=== PATIENT | female | born 1985 | race Hispanic/Latino ===

== ENCOUNTER 2016-08-04 17:20 | Emergency (ER) | payer SELFPAY ==
[~2016-08-04] VITALS: Ht 157.5 cm; Wt 163.3 kg
[~2016-08-04 17:20] MED LIST: FLEXERIL OR; NO MEDS; ULTRAM50 MG OR
[2016-08-04] MEDS ORDERED: NEXIUM40 M1 PO (17:28)
[2016-08-04 18:07] LABS: HEMATOCRIT 42.4 % (37.0-47.0); HEMOGLOBIN 13.3 g/dl (12.0-16.0); IMMATURE GRANULOCYTES 0.5 % (0.0-1.0); MEAN CELL VOLUME 77.8 fL CALC (80.0-100.0); MEAN CORPUSCULAR HGB 24.4 pG CALC (26.0-32.0); MEAN CORPUSCULAR HGB CONC 31.4 g/L CALC (32.0-36.0); NEUT# 6.83 thou/uL (2.00-7.15); RED BLOOD COUNT 5.45 mill/uL (4.20-5.60); RED CELL DISTRI WIDTH 15.6 % (11.5-15.5)
[2016-08-04 18:10] LABS: URINE BLOOD DIPSTICK TRACE-LYSED (NEGATIVE); URINE CLARITY CLEAR; URINE COLOR YELLOW; URINE GLUCOSE - DIPSTICK NEGATIVE (NEGATIVE); URINE KETONE >=80 mg/dL (NEGATIVE); URINE LEUK ESTERASE NEGATIVE (NEGATIVE); URINE NITRITE - DIPSTICK NEGATIVE (Negative); URINE PROTEIN - DIPSTICK NEGATIVE (NEG-TRACE); URINE SPECIFIC GRAVITY 1.025; URINE UROBILINOGEN - DIPSTICK 0.2 E.U./dL (0.2)
[2016-08-04 18:12] LABS: URINE BILIRUBIN - DIPSTICK NEGATIVE (NEGATIVE)
[2016-08-04 18:29] LABS: ALBUMIN 4.4 g/dL (3.2-5.0); ALKALINE PHOSPHATASE 80 u/l (38-126); AMYLASE 31 u/l (30-110); ANION GAP 21 (6-22 (CALC)); BILIRUBIN, TOTAL 0.8 mg/dL (0.0-1.4); BUN 6 mg/dL (7-17); BUN/CREATININE RATIO 11 (12-20 (CALC)); CALCIUM 9.6 mg/dL (8.4-10.2); CARBON DIOXIDE 25 mmol/l (22-30); CHLORIDE 100 mmol/l (95-108); CREATININE 0.6 mg/dL (0.5-1.0); GFR > 60 ML/MIN (>=60 (CALC)); GFR FOR AFR.AMER. > 60 ML/MIN (>=60 (CALC)); GLUCOSE 83 mg/dL (65-105); LIPASE 38 u/l (23-300); POTASSIUM 3.2 mmol/l (3.5-5.1); SGOT/AST 32 u/l (14-36); SGPT/ALT 59 u/l (9-52); SODIUM 142 mmol/l (137-146); TOTAL PROTEIN 8.6 g/dL (6.3-8.2)
[2016-08-04 18:39] LABS: MYOGLOBIN 12 ng/mL (0 - 62)
[2016-08-04 20:35] VITALS: BP 126/72
== END 2016-08-04 20:35 | disposition left against medical advice (07) | DRG 392 ==
LOC: ED 17:20
PROVIDERS: Emergency Medicine
DX: R10.9 Unspecified abdominal pain (principal); Z90.3 Acquired absence of stomach [part of]; R11.10 Vomiting, unspecified; E86.0 Dehydration; G89.18 Other acute postprocedural pain

== ENCOUNTER 2018-08-14 18:50 | Emergency (ER) | payer SELFPAY ==
[~2018-08-14] VITALS: Ht 157.5 cm; Wt 118.0 kg
[~2018-08-14 18:50] MED LIST changes: +NEXIUM40 M1 PO
[2018-08-14 19:30] VITALS: BP 136/89
[2018-08-14 19:51] LABS: URINE BILIRUBIN - DIPSTICK NEGATIVE (NEGATIVE); URINE BLOOD DIPSTICK MODERATE (NEGATIVE); URINE COLOR YELLOW; URINE GLUCOSE - DIPSTICK NEGATIVE (NEGATIVE); URINE KETONE NEGATIVE (NEGATIVE); URINE LEUK ESTERASE NEGATIVE (NEGATIVE); URINE NITRITE - DIPSTICK NEGATIVE (Negative); URINE PROTEIN - DIPSTICK NEGATIVE (NEG-TRACE)
[2018-08-14 20:00] LABS: URINE SQUAMOUS EPITHELIAL CELL FEW EPI/hpf (0-FEW); URINE WBC 0-2 WBC/hpf (0-5)
[2018-08-14] MEDS ORDERED: DIFLUCAN100 M1 PO (20:19)
== END 2018-08-14 20:29 | disposition home or self-care (01) | DRG 759 ==
LOC: ED 18:50
DX: B37.3 Candidiasis of vulva and vagina (principal)

== ENCOUNTER 2018-08-23 10:15 | Emergency (ER) | payer SELFPAY ==
[~2018-08-23] VITALS: Ht 157.5 cm; Wt 127.3 kg
[~2018-08-23 10:15] MED LIST changes: +DIFLUCAN100 M1 PO
[2018-08-23] MEDS ORDERED: AMOXICILLIN500 MG PO (10:37)
[2018-08-23] MEDS ORDERED: TORADOL PO (10:37)
[2018-08-23] MEDS ORDERED: DELTASONE20 MG PO (10:37)
[2018-08-23 10:44] VITALS: BP 125/72
== END 2018-08-23 10:49 | disposition home or self-care (01) | DRG 153 ==
LOC: ED 10:15
DX: J02.9 Acute pharyngitis, unspecified (principal)

== ENCOUNTER 2019-03-07 09:28 | Emergency (ER) | payer SELFPAY ==
[~2019-03-07] VITALS: Ht 157.5 cm; Wt 136.0 kg
[~2019-03-07 09:28] MED LIST changes: +AMOXICILLIN500 MG PO; +DELTASONE20 MG PO; +TORADOL PO
[2019-03-07 10:34] LABS: URINE BILIRUBIN - DIPSTICK NEGATIVE (NEGATIVE); URINE BLOOD DIPSTICK NEGATIVE (NEGATIVE); URINE COLOR YELLOW; URINE GLUCOSE - DIPSTICK NEGATIVE (NEGATIVE); URINE KETONE NEGATIVE (NEGATIVE); URINE LEUK ESTERASE NEGATIVE (NEGATIVE); URINE NITRITE - DIPSTICK NEGATIVE (Negative); URINE PH 7.5 (4.5-8.0); URINE PROTEIN - DIPSTICK NEGATIVE (NEG-TRACE); URINE SPECIFIC GRAVITY 1.015
[2019-03-07] MEDS ORDERED: TRAMADOL HYDROC50 MG PO (12:09)
[2019-03-07] MEDS ORDERED: CYCLOBENZAPR5 MG PO (12:11)
[2019-03-07 13:45] VITALS: BP 125/91
== END 2019-03-07 13:46 | disposition home or self-care (01) | DRG 552 ==
LOC: ED 09:28
PROVIDERS: Family Medicine
DX: M54.5 Low back pain (principal); W10.9XXA Fall (on) (from) unspecified stairs and steps, initial encounter

== ENCOUNTER 2019-05-23 | Emergency (ER) | payer SELFPAY ==
[~2019-05-23] MED LIST changes: +CYCLOBENZAPR5 MG PO; +TRAMADOL HYDROC50 MG PO
[2019-05-23 12:39] LABS: IMMATURE GRANULOCYTES 0.7 % (0.0-5.0); MEAN CORPUSCULAR HGB 20.2 pG CALC (26.0-32.0); MEAN CORPUSCULAR HGB CONC 29.7 g/L CALC (32.0-36.0); NEUT# 11.79 thou/uL (2.00-7.15); RED BLOOD COUNT 5.06 mill/uL (4.20-5.60); RED CELL DISTRI WIDTH 17.9 % (11.5-15.5)
[2019-05-23 12:40] LABS: HEMATOCRIT 34.3 % (37.0-47.0); HEMOGLOBIN 10.2 g/dl (12.0-16.0); MEAN CELL VOLUME 67.8 fL CALC (80.0-100.0)
[2019-05-23 12:58] LABS: ALBUMIN 3.9 g/dL (3.2-5.0); ALKALINE PHOSPHATASE 102 u/l (38-126); AMYLASE 46 u/l (30-110); BILIRUBIN, TOTAL 0.5 mg/dL (0.0-1.4); BUN 19 mg/dL (7-17); BUN/CREATININE RATIO 35 (12-20 (CALC)); CARBON DIOXIDE 27 mmol/l (22-30); CHLORIDE 106 mmol/l (95-108); CREATININE 0.5 mg/dL (0.5-1.0); GFR > 60 ML/MIN (>=60 (CALC)); GFR FOR AFR.AMER. > 60 ML/MIN (>=60 (CALC)); LIPASE 58 u/l (23-300); SGOT/AST 47 u/l (14-36); SODIUM 138 mmol/l (137-146); TOTAL PROTEIN 7.4 g/dL (6.3-8.2)
[2019-05-23 13:02] LABS: ANION GAP 9 (6-22 (CALC)); POTASSIUM 4.2 mmol/l (3.5-5.1)
[2019-05-23 13:09] LABS: MYOGLOBIN 19 ng/mL (0 - 62)
[2019-05-23] MEDS ORDERED: PREVACID30 M3 PO (18:39)
[2019-05-23] MEDS ORDERED: AMOXICILLIN500 MG PO (18:40)
== END 2019-05-23 17:10 | disposition home or self-care (01) | DRG 392 ==
PROVIDERS: Emergency Medicine
DX: K29.70 Gastritis, unspecified, without bleeding (principal); J02.0 Streptococcal pharyngitis
CPT/HCPCS: Q9967

== ENCOUNTER 2019-06-24 10:37 | Emergency (ER) | payer SELFPAY ==
[~2019-06-24 10:37] MED LIST changes: +PREVACID30 M3 PO
[2019-06-24 11:16] VITALS: BP 108/76
== END 2019-06-24 11:22 | disposition home or self-care (01) | DRG 204 ==
LOC: ED 10:37
DX: R05 Cough (principal); R09.89 Other specified symptoms and signs involving the circulatory and respiratory systems

== ENCOUNTER 2019-08-25 10:46 | Inpatient (IN) | payer SELFPAY ==
[~2019-08-25] VITALS: Ht 157.5 cm; Wt 137.0 kg
--- NOTE | 2019-08-25 10:46 | NUR ---
PATIENT TO ROOM VIA EMS AND PHYSICIAN AT BEDSIDE FOR EVAL
[2019-08-25 11:13] LABS: HEMATOCRIT 34.5 % (37.0-47.0); HEMOGLOBIN 10.4 g/dl (12.0-16.0); IMMATURE GRANULOCYTES 0.5 % (0.0-5.0); MEAN CELL VOLUME 65.1 fL CALC (80.0-100.0); MEAN CORPUSCULAR HGB 19.6 pG CALC (26.0-32.0); MEAN CORPUSCULAR HGB CONC 30.1 g/dL CAL (32.0-36.0); NEUT# 3.77 thou/uL (2.00-7.15); RED BLOOD COUNT 5.3 mill/uL (4.20-5.60); RED CELL DISTRI WIDTH 19.7 % (11.5-15.5)
[2019-08-25 11:26] LABS: HCG SERUM/URINE (NEG/POS) NEGATIVE (NEGATIVE)
--- NOTE | 2019-08-25 11:41 | NUR ---
PT RESTING QUIETLY ON STRETCHER, NO VOMITING SINCE ARRIVAL. WATCHING TV AND ON PHONE
[2019-08-25 11:50] LABS: URINE BILIRUBIN - DIPSTICK NEGATIVE (NEGATIVE); URINE BLOOD DIPSTICK TRACE-INTACT (NEGATIVE); URINE COLOR YELLOW; URINE GLUCOSE - DIPSTICK NEGATIVE (NEGATIVE); URINE KETONE 15 mg/dL (NEGATIVE); URINE LEUK ESTERASE NEGATIVE (NEGATIVE); URINE NITRITE - DIPSTICK NEGATIVE (Negative); URINE PROTEIN - DIPSTICK TRACE mg/dL (NEG-TRACE); URINE UROBILINOGEN - DIPSTICK 0.2 E.U./dL (0.2)
[2019-08-25 12:51] LABS: ALBUMIN 3.4 g/dL (3.2-5.0); ALKALINE PHOSPHATASE 63 u/l (38-126); ANION GAP 11 (6-22 (CALC)); BILIRUBIN, TOTAL 0.3 mg/dL (0.0-1.4); BUN 11 mg/dL (7-17); BUN/CREATININE RATIO 21 (12-20 (CALC)); C-REACTIVE PROTEIN 5.7 mg/dL (0-0.9); CARBON DIOXIDE 25 mmol/l (22-30); CHLORIDE 105 mmol/l (95-108); CREATININE 0.5 mg/dL (0.5-1.0); GFR > 60 ML/MIN (>=60 (CALC)); GFR FOR AFR.AMER. > 60 ML/MIN (>=60 (CALC)); LIPASE 35 u/l (23-300); MAGNESIUM 1.7 mg/dL (1.6-2.3); POTASSIUM 3.5 mmol/l (3.5-5.1); SGOT/AST 24 u/l (14-36); SODIUM 137 mmol/l (137-146); TOTAL PROTEIN 6.7 g/dL (6.3-8.2)
[2019-08-25 12:59] LABS: AMYLASE < 30 u/l (30-110)
[2019-08-25 13:03] LABS: ACT PARTIAL THROMBO TIME 29.9 SECONDS (20.0-32.5); PROTHROMBIN TIME 10.5 SECONDS (9.0-12.5)
[2019-08-25 13:05] LABS: D-DIMER > 35.20 mg/L (0.19-0.60)
--- NOTE | 2019-08-25 13:41 | NUR ---
PT RESTING QUIETLY , VSS , CALL LIGHT WITHIN REACH
--- NOTE | 2019-08-25 14:17 | NUR ---
SBAR PRINTED TO FLOOR
--- NOTE | 2019-08-25 15:22 | NUR ---
ADVISED PT OF WAIT TIME FOR ADMISSION, REMAINS ALERT/ORIENTED X3, IV INFUSION FINISHED, CALL LIGHT AT BEDSIDE.
--- NOTE | 2019-08-25 15:58 | NUR ---
REPORT GIVEN TO MED SURG FOR CONTINUATION OF CARE
--- NOTE | 2019-08-25 16:10 | NUR ---
PT TAKEN TO FLOOR PER W/C AND TELEMTRY.
--- NOTE | 2019-08-25 16:14 | NUR ---
PT ARRIVED TO [facility] VIA WHEELCHAIR ACCOMPANIED BY ER NURSE, PT AMBULATED WITH STEADY GAIT TO BED FROM WHEELCHAIR, PT ALERT AND ORIENTED X3, ORIENTED PT TO ROOM AND CALL LIGHT, DISCUSSED POC, SKIN INTACT. ADMISSION ASSESSMENT COMPLETED. EMS SITE FLUSHED WELL, TELE IN PLACE. CALL LIGHT IN REACH,CONTINUE TO MONITOR.
[2019-08-25 19:06] VITALS: BP 116/60
--- NOTE | 2019-08-25 19:58 | NUR ---
PT MEDICATED FOR HEADACHE W/TYLENOL AND ASSESSMENT COMPLETED AT THIS TIME. NO S/O DISTRESS NOTED AT THIS TIME. PT DENIES N/V AT THIS TIME, DENIES DIAHRREA, REPORTS VOMITING 3X SINCE YESTERDAY PRIOR TO ARRIVING TO HOSPITAL. PT DENIES ANY OTHER NEEDS. AT THIS TIME.
--- NOTE | 2019-08-25 23:02 | NUR ---
PT MEDICATED ORDER PROVIDE W/IVF. V/S ASSESSED, PT DENIES ANY OTHER NEEDS AT THIS TIME. CALL LIGHT IS W/IN REACH AND PT REORIENTED TO ITS USE, SAFETY MEASURES, AMBULATING TO RESTROOM, I OFFERED BSC FOR CONVENIENCE THROUGHOUT THE NIGHT, PT DENIED NEED. LIGHTS AND TV ARE OFF PER REQUEST, PT ENCOURAGED TO CALL NEEDS ARISE AND INSTRUCTED FOR USE OF PHONE FOR COMMUNICATION NEEDS.
[2019-08-25 23:34] VITALS: BP 92/63
[2019-08-26] VITALS (7 sets, daily range): BP systolic 100–132; BP diastolic 60–74
--- NOTE | 2019-08-26 05:05 | NUR ---
PT SLEEPING AT THIS TIME. AWOKE TO MY VOICE. DENIES ANY NEEDS. AIDE IN TO OBTAIN V/S
--- NOTE | 2019-08-26 08:12 | NUR ---
PT note 08/26/19 Patient screened for possible PT intervention. She may benefit from prone positioning and DBE - will await medical workup and OK from medical team before eval
--- NOTE | 2019-08-26 10:16 | NUR ---
SPOKE WITH PT ON THE PHONE TO CONDUCT [facility], PT TAKES NO MAINTENANCE MEDS, NO OTC SUPPLEMENTS, PREFERRED PHARMACY IS [facility]. NO ALLERGIES, BUT INSTRUCTED TO AVOID USE OF NSAIDS BY SURGEON WHO DID GASTRIC SLEEVE.
--- NOTE | 2019-08-26 17:50 | NUR ---
RESISDENT IS ALERT AND ORIENTED AND ABLE TO VERBALIZE NEEDS. MEDICATIONS GIVEN AND TOLERATED WELL. SKIN WARM TO TOUCH. MEDICATIONS GIVEN AND TOLERATED WELL. RESIDENT CONTINUES ON ABGT THERAPY WITH NO ADVERSE SIDE EFFECTS. MD IN TO SEE RESIDENT AND NEW ORDERS NOTED. RESIDENT IS ABLE TO AMBULATE TO TOILET WITH NO ASSIST NEEDEDC AND CONTINENT OF B/B. STATED THAT SHE HAD 2 BOUTS OF LOOSE STOOLS EARLIER IN THE DAY. COMPLAINTS OF SOB EARLIER IN SHIFT WITH O2 SAT WNL. IN BED WITH HOB ELEVATED. WILL CONTINUE TO OBSERVE
--- NOTE | 2019-08-26 20:08 | NUR ---
PT IN BED WITH LIGHTS OUT AND TV ON. PT DENIES ANY NEEDS AT THIS TIME. CALL LIGHT W/IN REACH AND PT ENCOURAGED TO CALL NEEDS ARISE.
--- NOTE | 2019-08-26 22:38 | NUR ---
PT MEDICATED FOR HEADACHE REPORTED 10/10 ON PAIN SCALE. PT DENIES N/V. C/O MILD SOB, BREATHING IS NOT LABORED AT THIS TIME. REPORTS DRY HACKING NON-PRODUCTIVE COUGH. PT REPORTS URINATING SEVERAL TIMES AND FLUSHING/NOT ABLE TO VISUALIZE. PT REPORTS BEING COMFORTABLE AND DENIES NEEDING ANY OTHER ASSISTANCE AT THIS TIME.
[2019-08-27] VITALS (13 sets, daily range): BP systolic 92–138; BP diastolic 51–87
--- NOTE | 2019-08-27 02:00 | NUR ---
PT SLEEPING, AWOKE TO MY VOICE DENIES ANY NEEDS, CALL LIGHT W/IN REACH. PT ENCOURAGED TO CALL NEEDS ARISE.
--- NOTE | 2019-08-27 05:00 | NUR ---
ATTEMPTS TO REPLACE EMS IV SITE AND OBTAIN BLOOD DRAW FOR LABS. UNABLE TO OBTAIN. WILL NOTIFY DAYSHIFT NURSE AND NIGHT CLUB MANAGER. PT TOLERATED WELL, DENIES ANY OTHER NEEDS AT THIS TIME AND HAS BEEN ENCOURAGED TO CALL NEEDS ARISE.
[2019-08-27 06:44] LABS: HEMOGLOBIN 8.8 g/dl (12.0-16.0); IMMATURE GRANULOCYTES 0.8 % (0.0-5.0); MEAN CORPUSCULAR HGB 30.4 pG CALC (26.0-32.0); NEUT# 11.98 thou/uL (2.00-7.15); RED BLOOD COUNT 2.89 mill/uL (4.20-5.60)
[2019-08-27 06:50] LABS: HEMATOCRIT 26.7 % (37.0-47.0); MEAN CELL VOLUME 92.4 fL CALC (80.0-100.0)
[2019-08-27 06:56] LABS: BUN 15 mg/dL (7-17); BUN/CREATININE RATIO 16 (12-20 (CALC)); CARBON DIOXIDE 21 mmol/l (22-30); CHLORIDE 99 mmol/l (95-108); GFR > 60 ML/MIN (>=60 (CALC)); GFR FOR AFR.AMER. > 60 ML/MIN (>=60 (CALC)); POTASSIUM 3.8 mmol/l (3.5-5.1)
[2019-08-27 06:57] LABS: ANION GAP 12 (6-22 (CALC)); SODIUM 128 mmol/l (137-146)
--- NOTE | 2019-08-27 07:15 | NUR ---
REPORT RECEIVED FROM MATT GARCIA. PT UP TO SHOWER WITH ASSIST. INCREASED SOB; EXTENSION TUBING PROIVDED 2L VIA NC.
--- NOTE | 2019-08-27 08:33 | NUR ---
NOTIFIED OF INCREASED SOB; SPO2 93-96% ON 2L VIA NC. NEW ORDER TO TRANSFER PT TO ICU FOR CLOSER MONITORING. BED ASSIGNMENT RECEIVED FROM MATT PEREZ; ICU 8. PT UPDATED. ASSESSMENT COMPLETED AT THIS TIME; PT SITTING UP ON EDGE OF BED. ATE MINIMAL BREAKFAST DUE TO SOB. VSS. PT ON AIRBORNE/CONTACT ISOLATION FOR POSITIVE COVID RESULTS. -
--- NOTE | 2019-08-27 10:00 | NUR ---
RECIEVED REPORT FROM MATT SOTO.
--- NOTE | 2019-08-27 10:02 | NUR ---
PT EDUCATED ON LOVENOX AND ADMINSITERED SQ. ASSISTED TO WHEELCHAIR FOR TRANSPORT TO ICU. REPORT GIVEN TO MATT PEREZ.
--- NOTE | 2019-08-27 10:23 | NUR ---
[facility] AT [facility]. PT A&0X4, ABLE TO MAKE NEEDS KNOWN. AFEBRILE. SR ON TELEMETRY, HR, 68. PT NOTED WITH LABORED BREATHING, PT STATES SHE IS BREATHING BETTER NOW, PT ENCOURAGED TO PRONE POSITION, PT DECLINED AT THIS TIME. PT ORIENTED TO UNIT, ROOM AND CALL JUNIOR.PO FLUIDS GIVEN. CALL LIGHT IN REACH. WILL MONITOR.
--- NOTE | 2019-08-27 12:08 | NUR ---
PT ASSISTED TO BSC, PT SOB WITH EXERTION, CONTINUES WITH O2@2LPM VIA NC, SA02@95%. PT SLOW STEADY GAIT. PT THEN ASSISTED BACK TO BED, PT SITTING ON SIDE OF BED, LUNCH TRAY SET UP. CALL LIGHT IN REACH. WILL MONITOR.
--- NOTE | 2019-08-27 13:03 | NUR ---
DR. WEBSTER AT BEDSIDE FOR ASSESSMENT AND TO DISCUSS PLAN OF CARE. NEW ORDERS RECIEVED.
--- NOTE | 2019-08-27 14:00 | NUR ---
LABS DRAWN AT BEDSIDE, ABLE TO GET 2 TUBES, UNABLE TO OBTAIN BLUE TOP. ATTEMPTS X3. DR. WEBSTER NOTIFIED.
[2019-08-27 15:55] LABS: ALBUMIN 3.2 g/dL (3.2-5.0); ALKALINE PHOSPHATASE 60 u/l (38-126); ANION GAP 11 (6-22 (CALC)); BILIRUBIN, TOTAL 0.3 mg/dL (0.0-1.4); BUN 6 mg/dL (7-17); BUN/CREATININE RATIO 15 (12-20 (CALC)); C-REACTIVE PROTEIN 3.1 mg/dL (0-0.9); CARBON DIOXIDE 22 mmol/l (22-30); CHLORIDE 107 mmol/l (95-108); CREATININE 0.4 mg/dL (0.5-1.0); GFR > 60 ML/MIN (>=60 (CALC)); GFR FOR AFR.AMER. > 60 ML/MIN (>=60 (CALC)); POTASSIUM 3.7 mmol/l (3.5-5.1); SGOT/AST 25 u/l (14-36); TOTAL PROTEIN 6.3 g/dL (6.3-8.2)
--- NOTE | 2019-08-27 16:00 | NUR ---
NEW ORDERS RECIEVED, PT RESTING IN PRONE POSITION, RESPIRATIONS EVEN/UNLABORED/SHALLOW. SA02@96% ON 02@2LPM VIA NC. CALL LIGHT IN REACH. WILL MONITOR.
[2019-08-27 16:21] LABS: SODIUM 136 mmol/l (137-146)
--- NOTE | 2019-08-27 18:05 | NUR ---
PT RESTING IN BED, DIETARY ON UNIT, DINNER TRAY SET UP. PT OFFERS NO COMPLAINTS AT THIS TIME. CALL LIGHT IN REACH. WILL MONITOR.
--- NOTE | 2019-08-27 20:00 | NUR ---
PATIENT RESTING IN BED WATCHING TV ON ROUNDS. RESP NON-LABORED AT REST. PATIENT STATES INCREASED SOB WITH MINIMAL ACTIVITY. O2 ON AT 2 L NC. O2 SAT BREATH SOUNDS DIMINSHED THROUGHOUT LUNG SKELTON. ABD SOFT WITH ACTIVE BOWEL SOUNDS. PATIENT DENIES HAVING LOOSE STOOLS THIS AFTERNOON. REMOVED DINNER TRAY PATIENT STATES DID NOT FEEL UP TO EATING. INFORMED PATIENT THERE ARE SNACKS AND SANDWICHES IF SHE IS HUNGRY LATER ON. SALINE LOCK IN LAC, SITE BENIGN. DRY CHAIN OPERATOR SHOWS SR. DISCUSSED PLAN OF CARE. DENIES NEEDS AT THIS TIME.
--- NOTE | 2019-08-27 21:50 | NUR ---
TYLENOL 650 MG PO FOR C/O HEADACHE. PATIENT GIVEN APPLE JUICE AND GAURANG CRACKERS FOR A SNACK.
--- NOTE | 2019-08-27 22:30 | NUR ---
PATIENT LYING PRONE, O2 SAT 98%, RR 20.
--- NOTE | 2019-08-27 23:15 | NUR ---
DR WEBSTER PHONED IN FOR CONDITION UPDATE ON PATIENT.
[2019-08-28] VITALS (14 sets, daily range): BP systolic 94–138; BP diastolic 60–90
--- NOTE | 2019-08-28 00:10 | NUR ---
PATIENT CONTINUES RESTING PRONE. VSS. O2 SAT 99% SB-SR ON MONITOR, HR 50'S-60'S.
--- NOTE | 2019-08-28 01:00 | NUR ---
NO CHANGES TO REPORT. RESTING QUIETLY IN PRONE POSITION.
--- NOTE | 2019-08-28 03:12 | NUR ---
PATIENT RESTING WITH EYES CLOSED IN SEMI-FOWLERS POSITION. O2 SAT 94%
--- NOTE | 2019-08-28 04:00 | NUR ---
VSS. MAINTAINING O2 SAT GREATER THAN 94% SB-SR ON MONITOR.
--- NOTE | 2019-08-28 04:55 | NUR ---
BLOOD DRAWN FOR AM LABS VIA PERIPHRAL STICK IN RFA X1 ATTEMPT.
[2019-08-28 05:12] LABS: HEMOGLOBIN 9.1 g/dl (12.0-16.0); IMMATURE GRANULOCYTES 0.2 % (0.0-5.0); MEAN CORPUSCULAR HGB 19.7 pG CALC (26.0-32.0); MEAN CORPUSCULAR HGB CONC 29.4 g/dL CAL (32.0-36.0); NEUT# 2.43 thou/uL (2.00-7.15); RED BLOOD COUNT 4.62 mill/uL (4.20-5.60)
[2019-08-28 05:25] LABS: MEAN CELL VOLUME 67.1 fL CALC (80.0-100.0)
[2019-08-28 05:35] LABS: ALBUMIN 3.1 g/dL (3.2-5.0); ALKALINE PHOSPHATASE 58 u/l (38-126); ANION GAP 11 (6-22 (CALC)); BILIRUBIN, TOTAL 0.3 mg/dL (0.0-1.4); BUN 6 mg/dL (7-17); BUN/CREATININE RATIO 16 (12-20 (CALC)); CARBON DIOXIDE 24 mmol/l (22-30); CHLORIDE 107 mmol/l (95-108); CREATININE 0.4 mg/dL (0.5-1.0); GFR > 60 ML/MIN (>=60 (CALC)); GFR FOR AFR.AMER. > 60 ML/MIN (>=60 (CALC)); POTASSIUM 3.4 mmol/l (3.5-5.1); SGOT/AST 22 u/l (14-36); SODIUM 138 mmol/l (137-146); TOTAL PROTEIN 6.3 g/dL (6.3-8.2)
--- NOTE | 2019-08-28 06:31 | NUR ---
PATIENT HAS MAINTAINED O2 SATS DURING THE NIGHT OF GREATER THAN 94%. AFEBRILE. SR ON MONITOR.
--- NOTE | 2019-08-28 06:45 | NUR ---
RECIEVED REPORT FROM MATT LEBLANC. ASSUMED PT CARE.
--- NOTE | 2019-08-28 07:30 | NUR ---
AT [facility] FOR ASSESSMENT AND TO DISCUSS PLAN OF CARE. NEW ORDERS RECIEVED.
--- NOTE | 2019-08-28 08:00 | NUR ---
PT RESTING IN BED, A&OX4, ABLE TO MAKE NEEDS KNOWN. SR ON TELEMETRY, HR 62. PT DENIES CP, SOB OR DISTRESS AT THIS TIME. RESPIRATION, EVEN/UNLABORED, LS DIMINISHED THROUGHOUT, SA02@96% ON 2LPM/NC. ADBOMEN SOFT DISTENDED, NON TENDER. BSX4 ACTIVE, LBM 5-26-20. 20GLAC/SL FLUSHES WITHOUT DIFFICULTY, NO S/S OF INFILTRATION NOTED AT SITE. iD CONSULT ORDERED, PENDING. PT REPOSITIONING SELF FROM SUPINE, SEMI-FOWLERS AND PRONE NEEDED. CALL LIGHT IN REACH. WILL MONITOR.
--- NOTE | 2019-08-28 09:30 | NUR ---
PT RESTING IN BED IN PRONE POSITION. RESPIRATIONS EVEN/UNLABORED, SA02@99% 2LPM/NC. CALL LIGHT IN REACH. WILL MONITOR.
--- NOTE | 2019-08-28 10:49 | NUR ---
DR. AWAN AT VIRTUAL BEDSIDE FOR ID CONSULTATION, SEE CONSULTATION NOTES.
--- NOTE | 2019-08-28 12:39 | NUR ---
PT RESTING IN SEMI FOWLERS WITH EYES CLOSED. PT REFUSED LUNCH TRAY, REQUESTED IT BE HELD FOR LATER. MEAL PLACED IN NUTRITION ROOM. WILL CONTINUE TO MONITOR.CALL LIGHT IN REACH. NO DISTRESS NOTED.
--- NOTE | 2019-08-28 14:00 | NUR ---
UPON FLUSHING 20GLAC, PT STATED DISCOMFORT, SIGHT LEAKING. SEVERAL ATTEMPTS TO START NEW IV UNSUCCESSFUL. NOTIFIED DR. WEBSTER TO UPDATE.
--- NOTE | 2019-08-28 14:28 | NUR ---
CARROLL WITH PT AT BEDSIDE FOR CHEST PT. PT TOLERATED WELL. PT REMAINS IN PRONE POSITION. CALL LIGHT IN REACH. WILL MONITOR.
--- NOTE | 2019-08-28 16:00 | NUR ---
IV site discontinued, cath intact. No edema , no redness, voices no discomfort.
--- NOTE | 2019-08-28 17:58 | NUR ---
Peripheral IV started. IV access obtained with #20 [employer] at [facility] with 1 IV stick attempts. Flushes easily with good blood return.
--- NOTE | 2019-08-28 19:00 | NUR ---
sitting on side of bed. denies c/o. no resp distress. o2 cont. cannoneer shows sinus rhythm hr 100. #20 rac saline lock. po fluids taken fair. voids per bsc. fall & airborne/contact precautions cont.
--- NOTE | 2019-08-28 22:00 | NUR ---
eyes closed. no distress. core drilling supervisor shows sinus rhythm hr 62.
[2019-08-29] VITALS (8 sets, daily range): BP systolic 97–141; BP diastolic 65–95
--- NOTE | 2019-08-29 00:01 | NUR ---
eyes closed. no distress. o2 cont.
--- NOTE | 2019-08-29 02:00 | NUR ---
resting quietly in supine position. hob up. o2 cont. no distress.
--- NOTE | 2019-08-29 04:45 | NUR ---
blood drawn & sent to lab.
[2019-08-29 05:41] LABS: HEMATOCRIT 27.7 % (37.0-47.0); HEMOGLOBIN 8.4 g/dl (12.0-16.0); IMMATURE GRANULOCYTES 0.5 % (0.0-5.0); MEAN CELL VOLUME 68.4 fL CALC (80.0-100.0); MEAN CORPUSCULAR HGB 20.7 pG CALC (26.0-32.0); MEAN CORPUSCULAR HGB CONC 30.3 g/dL CAL (32.0-36.0); NEUT# 1.95 thou/uL (2.00-7.15); RED BLOOD COUNT 4.05 mill/uL (4.20-5.60); RED CELL DISTRI WIDTH 19.9 % (11.5-15.5)
[2019-08-29 06:00] LABS: ALBUMIN 2.7 g/dL (3.2-5.0); ALKALINE PHOSPHATASE 49 u/l (38-126); ANION GAP 9 (6-22 (CALC)); BILIRUBIN, TOTAL 0.3 mg/dL (0.0-1.4); BUN 5 mg/dL (7-17); BUN/CREATININE RATIO 12 (12-20 (CALC)); C-REACTIVE PROTEIN 2.5 mg/dL (0-0.9); CARBON DIOXIDE 24 mmol/l (22-30); CHLORIDE 109 mmol/l (95-108); CREATININE 0.4 mg/dL (0.5-1.0); GFR > 60 ML/MIN (>=60 (CALC)); GFR FOR AFR.AMER. > 60 ML/MIN (>=60 (CALC)); POTASSIUM 3.2 mmol/l (3.5-5.1); SGOT/AST 24 u/l (14-36); SODIUM 139 mmol/l (137-146); TOTAL PROTEIN 5.5 g/dL (6.3-8.2)
--- NOTE | 2019-08-29 07:20 | NUR ---
PT RESTING IN BED WITH EYES CLOSED. AROUSES TO VERBAL STIMULI. PT IS ALERT AND ORIENTED X3. SHIFT ASSESSMENT COMPLETED AT THIS TIME. IV PATENT X1. CALL LIGHT IN REACH. WILL CONTINUE TO MONITOR.
--- NOTE | 2019-08-29 09:20 | NUR ---
DR WEBSTER AT BEDSIDE AT THIS TIME.
--- NOTE | 2019-08-29 09:52 | NUR ---
PT CURRENTLY INPT IN ICU DM , SPOKE SON KINGRN, STATES PT IS AWARE OF POSITIVE COVID-19 RESULTS
--- NOTE | 2019-08-29 10:00 | NUR ---
PT RESTING IN BED AWAKE AND WATCHING TV. RESP ARE EVEN AND UNLABORED. NO DISTRESS NOTED. CALL LIGHT IN REACH. WILL CONTINUE TO MONITOR.
--- NOTE | 2019-08-29 11:40 | NUR ---
PT SET UP FOR NOON MEAL
--- NOTE | 2019-08-29 13:05 | NUR ---
PT RESTING IN BED WITH EYES CLOSED. AT THIS TIME. RESP ARE EVEN AND UNLABORED. NO DISTRESS NOTED. CALL LIGHT IN REACH. WILL CONTINUE TO MONIOTR.
--- NOTE | 2019-08-29 13:13 | NUR ---
REPORT CALLED TO CHARLES GUTIERREZ ON MED SURG.
--- NOTE | 2019-08-29 13:35 | NUR ---
PT TRANSPORTED TO [facility] VIA WHEELCHAIR. PT ASSISTED TO SHOWER CHARLES GUTIERREZ MADE AWARE.
--- NOTE | 2019-08-29 13:40 | NUR ---
PT ARRIVED TO UNIT VIA WHEELCHAIR CURRENTLY SHOWERING INDEPENDENLTY. PLACED IN AIRBORNE/CONTACT ISOLATION FOR POSTIVE COVID SWAB. PT ORIENTED TO ROOM AND CALL LIGHT SYSTEM.
--- NOTE | 2019-08-29 15:53 | NUR ---
ABT X 2 INFUSED WITHOUT DIFFICULTY AND PT NOW SALINE LOCKED. SPO2 ON ROOM AIR 88%; OXYGEN REAPPLIED AT 1.5L AND SPO2 INCREASED TO 95%. PT REQUESTING SNACKS; CRACKERS AND NUTRIGRAIN BAR PROIVDED. PT RESTING IN BED SEMI FOWLERS.
--- NOTE | 2019-08-29 16:14 | NUR ---
PT note I checked in with the patient to ensure she was moving well. Her program includes her being on her feet 6x daily , deep breathing and breath holds for 6 seconds and prone positioning. She appears indepnedent and continues to improve
--- NOTE | 2019-08-29 20:36 | NUR ---
PT MEDICATED W/TYLENOL FOR HEADACHE 7/10 ON PAIN SCALE AND ASSESSMENT COMPLETED AT THIS TIME. LUNG SOUNDS DIMINISHED THROUGHOUT, PT REPORTS FEELING BETTER THAN THE DAY BEFORE AND FEELS SHE IS IMPROVING. PT ALSO REPORTS 1X SMALL WATERY STOOL EARLIER THIS DAY, DENIES N/V. INSTRUCTED PT TO CALL USING CALL SYSTEM IF ANY NEEDS ARISE. SHE DENIES ANY FURTHER NEEDS AT THIS TIME. CALL LIGHT IS IN HAND.
[2019-08-30] VITALS: BP 105/72
--- NOTE | 2019-08-30 00:20 | NUR ---
PT SLEEPING, V/S ASSESSED, AIDE IN W/PT
--- NOTE | 2019-08-30 03:22 | NUR ---
PT SLEEPING, NO S/O DISTRESS NOTED.
[2019-08-30 04:10] VITALS: BP 127/84
[2019-08-30 06:33] LABS: HEMATOCRIT 31.3 % (37.0-47.0); HEMOGLOBIN 9.3 g/dl (12.0-16.0); IMMATURE GRANULOCYTES 0.6 % (0.0-5.0); MEAN CORPUSCULAR HGB 19.9 pG CALC (26.0-32.0); MEAN CORPUSCULAR HGB CONC 29.7 g/dL CAL (32.0-36.0); NEUT# 2.44 thou/uL (2.00-7.15); RED BLOOD COUNT 4.67 mill/uL (4.20-5.60); RED CELL DISTRI WIDTH 19.9 % (11.5-15.5)
[2019-08-30 07:37] LABS: ALBUMIN 3.2 g/dL (3.2-5.0); ALKALINE PHOSPHATASE 56 u/l (38-126); ANION GAP 11 (6-22 (CALC)); BILIRUBIN, TOTAL 0.3 mg/dL (0.0-1.4); BUN 7 mg/dL (7-17); BUN/CREATININE RATIO 19 (12-20 (CALC)); C-REACTIVE PROTEIN 1.6 mg/dL (0-0.9); CARBON DIOXIDE 23 mmol/l (22-30); CHLORIDE 108 mmol/l (95-108); CREATININE 0.4 mg/dL (0.5-1.0); GFR > 60 ML/MIN (>=60 (CALC)); GFR FOR AFR.AMER. > 60 ML/MIN (>=60 (CALC)); POTASSIUM 3.6 mmol/l (3.5-5.1); SODIUM 138 mmol/l (137-146); TOTAL PROTEIN 6.3 g/dL (6.3-8.2)
[2019-08-30 07:38] LABS: SGOT/AST 79 u/l (14-36)
[2019-08-30 07:58] VITALS: BP 116/76
--- NOTE | 2019-08-30 09:00 | NUR ---
PT AWAKE, ALERT, ORIENTED X 3. LUNGS CLEAR, RA. PT UP IN ROOM. NO DISTRESS NOTED, NO COMPLAINTS OF SHORTNESS OF BREATH THIS MORNING. VENOFER INFUSION PROVIDED THIS MORNING, NO ADVERSE REACTION.
[2019-08-30 11:37] VITALS: BP 108/68
--- NOTE | 2019-08-30 12:48 | NUR ---
PT SEEN BY DR WEBSTER THIS MORNING, MAY BE DISCHARGED TO HOME TOMORROW. PT CONTINUES BEFORE, NO DISTRESS.
--- NOTE | 2019-08-30 16:12 | NUR ---
PT note Patient is independent with breathe holds and with prone postioning. Funcitonally, she is able to ambulate at the household level with vitals stable. At this point, we will DC from PT as she is expected to recover
--- NOTE | 2019-08-30 16:22 | NUR ---
ANTIBIOTICS PROVIDED ORDERED. PT REMAINS BEFORE, STATES THAT SHE FEELS BETTER.
[2019-08-30 16:47] VITALS: BP 112/78
[2019-08-30 19:07] VITALS: BP 122/73
--- NOTE | 2019-08-30 20:17 | NUR ---
ASSESSMENT COMPLETED. IV SITE PATENT AND SL, FLUSHES WELL. DENIES NEEDS/PAIN AT THIS TIME. DENIES SOB AT THIS TIME. O2 TITRATED DOWN TO 1 LITER/MIN PER NC; INSTRUCTED PT. IF BREATHING WORSENS TO NOTIFY STAFF AND VERBALIZES UNDERSTANDING. PT. REPORTS LAST BM YESTERDAY. ENCOURAGED TO CALL FOR ANY NEEDS. CALL LIGHT IS IN REACH. WILL CONTINUE TO MONITOR.
[2019-08-31 00:14] VITALS: BP 120/68
--- NOTE | 2019-08-31 00:15 | NUR ---
PT. SITTING UP IN BED WITH NO RESP. DISTRESS NOTED. O2 96% ON 1LITER/MIN PER NC AND IS REMOVED AT THIS TIME AND PT. PLACED ON RA, WILL CONTINUE TO MONITOR. PT. IS AGAIN INSTRUCTED TO CALL IF BREATHING GETS WORSENED OR SOB OCCURS; VERBALIZES UNDERSTANDING. PT. C/O HIGGINS AND MEDICATED WITH ORDERED PRN TYLENOL, WILL REASSESS.
[2019-08-31 03:41] VITALS: BP 122/81
--- NOTE | 2019-08-31 03:41 | NUR ---
PT. SLEEPING AND AWAKENED FOR AM VS; VSS; SPO2 94% ON RA. WILL CONTINUE TO MONITOR. DENIES NEEDS AND VOICES NO CONCERNS. CALL LIGHT IS IN REACH. WILL CONTINUE TO MONITOR.
[2019-08-31 07:53] VITALS: BP 118/79
--- NOTE | 2019-08-31 10:04 | NUR ---
PT SEEN SITTING UP IN THE BED, ROOM AIR, SATS 92%. PT HOPES TO BE DISCHARGED HOME TODAY.
[2019-08-31 11:38] VITALS: BP 135/98
--- NOTE | 2019-08-31 14:55 | NUR ---
PT HAS BEEN DISCHARGED TO HOME. PT VERBALIZED UNDERSTANDING OF DC INSTRUCTIONS, WAS TAKEN TO LOBBY VIA WHEELCHAIR. PT LEAVES IN STABLE CONDITION, THANKS STAFF SHE LEAVES. PT WAS PROVIDED HOME OXYGEN TANK, WHICH SHE HAS WITH HER. NO SHORTNESS OF BREATH, NOT WEARING IT AT THIS MOMENT. WORK NOTE PROVIDED THAT REQUIRES FURTHER TESTING TO BE ALLOWED BACK TO WORK.
--- NOTE | 2019-09-03 13:53 | NUR ---
Pneumonia discharge follow up call performed 09/03/19. Pt. states she is improving steadily. Still using O2, but not all the time. Did not have any discharge medications prescribed, only oxygen. Pt. has not made a follow up appt with PCP or with [facility] for repeat COVID test. Pt. states she is still isolating. She has no current needs or issues. Encouraged to call if there was anything we could assist with.
== END 2019-08-31 14:47 | disposition home or self-care (01) | DRG 177 ==
LOC: ED 10:46 → ED-I 14:14 → MS2 15:07 → ICU 08-27 10:05 → MS2 08-29 13:36
PROVIDERS: ADMIT Internal Medicine; ATTEND Internal Medicine
DX: U07.1 COVID-19 (principal); J12.89 Other viral pneumonia; J96.21 Acute and chronic respiratory failure with hypoxia; Z68.43 Body mass index [BMI] 50.0-59.9, adult; E66.01 Morbid (severe) obesity due to excess calories; D50.9 Iron deficiency anemia, unspecified; E87.6 Hypokalemia; Z98.84 Bariatric surgery status
CPT/HCPCS: J1650; J1756; Q3014; Q9967

== ENCOUNTER 2020-03-30 17:27 | Emergency (ER) | payer SELFPAY ==
[~2020-03-30] VITALS: Ht 157.5 cm; Wt 145.0 kg
[2020-03-30 18:37] LABS: HEMATOCRIT 35.4 % (37.0-47.0); HEMOGLOBIN 10.3 g/dl (12.0-16.0); IMMATURE GRANULOCYTES 0.7 % (0.0-5.0); MEAN CELL VOLUME 69.4 fL CALC (80.0-100.0); MEAN CORPUSCULAR HGB 20.2 pG CALC (26.0-32.0); MEAN CORPUSCULAR HGB CONC 29.1 g/dL CAL (32.0-36.0); NEUT# 11.61 thou/uL (2.00-7.15); RED BLOOD COUNT 5.1 mill/uL (4.20-5.60); RED CELL DISTRI WIDTH 19.6 % (11.5-15.5)
[2020-03-30 18:50] LABS: ALKALINE PHOSPHATASE 106 u/l (38-126); AMYLASE 65 u/l (30-110); ANION GAP 11 (6-22 (CALC)); BILIRUBIN, TOTAL 0.3 mg/dL (0.0-1.4); BUN 15 mg/dL (7-17); BUN/CREATININE RATIO 28 (12-20 (CALC)); CARBON DIOXIDE 24 mmol/l (22-30); CHLORIDE 107 mmol/l (95-108); CREATININE 0.5 mg/dL (0.5-1.0); GFR > 60 ML/MIN (>=60 (CALC)); GFR FOR AFR.AMER. > 60 ML/MIN (>=60 (CALC)); LIPASE 65 u/l (23-300); POTASSIUM 4.2 mmol/l (3.5-5.1); SGOT/AST 42 u/l (14-36); SODIUM 137 mmol/l (137-146); TOTAL PROTEIN 7.7 g/dL (6.3-8.2)
[2020-03-30 20:35] LABS: URINE BILIRUBIN - DIPSTICK NEGATIVE (NEGATIVE); URINE BLOOD DIPSTICK NEGATIVE (NEGATIVE); URINE COLOR YELLOW; URINE GLUCOSE - DIPSTICK NEGATIVE (NEGATIVE); URINE KETONE NEGATIVE (NEGATIVE); URINE LEUK ESTERASE NEGATIVE (NEGATIVE); URINE NITRITE - DIPSTICK NEGATIVE (Negative); URINE PH 6.5 (4.5-8.0); URINE PROTEIN - DIPSTICK NEGATIVE (NEG-TRACE); URINE SPECIFIC GRAVITY 1.015
[2020-03-30 20:41] VITALS: BP 120/65
[2020-03-30] MEDS ORDERED: ZOFRAN4 MG/TAB PO (20:45)
[2020-03-30] MEDS ORDERED: ULTRAM50 MG PO (20:45)
== END 2020-03-30 21:00 | disposition home or self-care (01) | DRG 392 ==
LOC: ED 17:27
PROVIDERS: Emergency Medicine
DX: K59.00 Constipation, unspecified (principal); D72.829 Elevated white blood cell count, unspecified; Z98.84 Bariatric surgery status
CPT/HCPCS: Q9967; S0164

== ENCOUNTER 2020-05-16 08:52 | Emergency (ER) | payer SELFPAY ==
[~2020-05-16] VITALS: Ht 157.5 cm; Wt 140.0 kg
[~2020-05-16 08:52] MED LIST changes: +ULTRAM50 MG PO; +ZOFRAN4 MG/TAB PO
[2020-05-16 12:01] VITALS: BP 142/78
== END 2020-05-16 12:02 | disposition home or self-care (01) | DRG 605 ==
LOC: ED 08:52
PROC: 0HDQXZZ Extraction of Finger Nail, External Approach (ICD-10-PCS; principal; 2020-05-16)
DX: S61.306A Unspecified open wound of right little finger with damage to nail, initial encounter (principal); W23.0XXA Caught, crushed, jammed, or pinched between moving objects, initial encounter; Y92.009 Unspecified place in unspecified non-institutional (private) residence as the place of occurrence of the external cause; Z98.84 Bariatric surgery status

== ENCOUNTER 2020-06-05 12:20 | Emergency (ER) | payer SELFPAY ==
[~2020-06-05] VITALS: Ht 157.5 cm; Wt 154.0 kg
[2020-06-05 13:26] LABS: ALBUMIN 4.2 g/dL (3.2-5.0); ALKALINE PHOSPHATASE 119 u/l (38-126); AMYLASE 46 u/l (30-110); ANION GAP 14 (6-22 (CALC)); BUN 15 mg/dL (7-17); BUN/CREATININE RATIO 27 (12-20 (CALC)); CARBON DIOXIDE 24 mmol/l (22-30); CHLORIDE 103 mmol/l (95-108); CREATININE 0.5 mg/dL (0.5-1.0); GFR > 60 ML/MIN (>=60 (CALC)); GFR FOR AFR.AMER. > 60 ML/MIN (>=60 (CALC)); LIPASE 59 u/l (23-300); POTASSIUM 4.1 mmol/l (3.5-5.1); SGOT/AST 58 u/l (14-36); SODIUM 136 mmol/l (137-146); TOTAL PROTEIN 7.9 g/dL (6.3-8.2)
[2020-06-05 13:35] LABS: BILIRUBIN, TOTAL 0.6 mg/dL (0.0-1.4)
[2020-06-05 13:38] LABS: MYOGLOBIN 14 ng/mL (0 - 62)
[2020-06-05 13:44] LABS: URINE BILIRUBIN - DIPSTICK NEGATIVE (NEGATIVE); URINE BLOOD DIPSTICK NEGATIVE (NEGATIVE); URINE COLOR YELLOW; URINE GLUCOSE - DIPSTICK NEGATIVE (NEGATIVE); URINE KETONE NEGATIVE (NEGATIVE); URINE LEUK ESTERASE NEGATIVE (NEGATIVE); URINE NITRITE - DIPSTICK NEGATIVE (Negative); URINE PH 7.5 (4.5-8.0); URINE PROTEIN - DIPSTICK NEGATIVE (NEG-TRACE); URINE SPECIFIC GRAVITY 1.025
[2020-06-05 13:44] LABS: HEMOGLOBIN 10.3 g/dl (12.0-16.0); IMMATURE GRANULOCYTES 0.4 % (0.0-5.0); MEAN CELL VOLUME 67.4 fL CALC (80.0-100.0); MEAN CORPUSCULAR HGB 19.8 pG CALC (26.0-32.0); MEAN CORPUSCULAR HGB CONC 29.4 g/dL CAL (32.0-36.0); NEUT# 8.35 thou/uL (2.00-7.15); RED BLOOD COUNT 5.19 mill/uL (4.20-5.60); RED CELL DISTRI WIDTH 17.5 % (11.5-15.5)
[2020-06-05] MEDS ORDERED: PREVACID30 M3 PO (16:44)
[2020-06-05] MEDS ORDERED: ONDANSETRON4 MG PO (16:44)
[2020-06-05 17:14] VITALS: BP 97/53
== END 2020-06-05 17:23 | disposition home or self-care (01) | DRG 392 ==
LOC: ED 12:20
PROVIDERS: Emergency Medicine
DX: K29.70 Gastritis, unspecified, without bleeding (principal); Z87.442 Personal history of urinary calculi; Z98.84 Bariatric surgery status; Z20.822 Contact with and (suspected) exposure to COVID-19
CPT/HCPCS: Q9967; S0164

== ENCOUNTER 2020-06-28 21:11 | Emergency (ER) | payer SELFPAY ==
[~2020-06-28] VITALS: Ht 162.6 cm; Wt 141.0 kg
[~2020-06-28 21:11] MED LIST changes: +ONDANSETRON4 MG PO
[2020-06-28] MEDS ORDERED: FIORICET PO (21:29)
[2020-06-28 22:03] LABS: HEMATOCRIT 33.9 % (37.0-47.0); HEMOGLOBIN 9.9 g/dl (12.0-16.0); IMMATURE GRANULOCYTES 0.4 % (0.0-5.0); MEAN CORPUSCULAR HGB 19.6 pG CALC (26.0-32.0); MEAN CORPUSCULAR HGB CONC 29.2 g/dL CAL (32.0-36.0); NEUT# 5.85 thou/uL (2.00-7.15); RED BLOOD COUNT 5.06 mill/uL (4.20-5.60); RED CELL DISTRI WIDTH 18.7 % (11.5-15.5)
[2020-06-28 22:05] LABS: URINE BILIRUBIN - DIPSTICK NEGATIVE (NEGATIVE); URINE COLOR YELLOW; URINE GLUCOSE - DIPSTICK NEGATIVE (NEGATIVE); URINE KETONE NEGATIVE (NEGATIVE); URINE LEUK ESTERASE NEGATIVE (NEGATIVE); URINE PROTEIN - DIPSTICK NEGATIVE (NEG-TRACE); URINE UROBILINOGEN - DIPSTICK 0.2 E.U./dL (0.2)
[2020-06-28 22:06] LABS: URINE BLOOD DIPSTICK NEGATIVE (NEGATIVE); URINE NITRITE - DIPSTICK NEGATIVE (Negative)
[2020-06-28 22:15] LABS: ALBUMIN 3.9 g/dL (3.2-5.0); ALKALINE PHOSPHATASE 78 u/l (38-126); ANION GAP 11 (6-22 (CALC)); BILIRUBIN, TOTAL 0.4 mg/dL (0.0-1.4); BUN 19 mg/dL (7-17); BUN/CREATININE RATIO 30 (12-20 (CALC)); CARBON DIOXIDE 24 mmol/l (22-30); CHLORIDE 105 mmol/l (95-108); CREATININE 0.6 mg/dL (0.5-1.0); GFR > 60 ML/MIN (>=60 (CALC)); GFR FOR AFR.AMER. > 60 ML/MIN (>=60 (CALC)); POTASSIUM 4.1 mmol/l (3.5-5.1); SGOT/AST 17 u/l (14-36); SODIUM 137 mmol/l (137-146); TOTAL PROTEIN 7.2 g/dL (6.3-8.2)
[2020-06-29 01:15] VITALS: BP 124/66
== END 2020-06-29 01:30 | disposition short-term general hospital (02) | DRG 125 ==
LOC: ED 21:11
PROVIDERS: Family Medicine
DX: H54.3 Unqualified visual loss, both eyes (principal); R51.9 Headache, unspecified

== ENCOUNTER 2020-10-18 10:34 | Emergency (ER) | payer BC ==
[~2020-10-18] VITALS: Ht 162.6 cm; Wt 141.4 kg
[~2020-10-18 10:34] MED LIST changes: +FIORICET PO
[2020-10-18 11:32] LABS: URINE BILIRUBIN - DIPSTICK NEGATIVE (NEGATIVE); URINE BLOOD DIPSTICK LARGE (NEGATIVE); URINE COLOR RED; URINE GLUCOSE - DIPSTICK NEGATIVE (NEGATIVE); URINE KETONE 15 mg/dL (NEGATIVE); URINE LEUK ESTERASE SMALL (NEGATIVE); URINE NITRITE - DIPSTICK POSITIVE (Negative); URINE PROTEIN - DIPSTICK >=300 mg/dL (NEG-TRACE); URINE RBC TNTC RBC/hpf (0-5); URINE SPECIFIC GRAVITY >=1.030; URINE SQUAMOUS EPITHELIAL CELL FEW EPI/hpf (0-FEW)
[2020-10-18 11:32] LABS: HEMATOCRIT 36.3 % (37.0-47.0); HEMOGLOBIN 10.5 g/dl (12.0-16.0); IMMATURE GRANULOCYTES 0.6 % (0.0-5.0); MEAN CELL VOLUME 66.1 fL CALC (80.0-100.0); MEAN CORPUSCULAR HGB 19.1 pG CALC (26.0-32.0); MEAN CORPUSCULAR HGB CONC 28.9 g/dL CAL (32.0-36.0); NEUT# 7.05 thou/uL (2.00-7.15); RED BLOOD COUNT 5.49 mill/uL (4.20-5.60); RED CELL DISTRI WIDTH 19.4 % (11.5-15.5)
[2020-10-18 11:36] LABS: ALBUMIN 4.1 g/dL (3.2-5.0); ALKALINE PHOSPHATASE 73 u/l (38-126); ANION GAP 15 (6-22 (CALC)); BILIRUBIN, TOTAL 0.3 mg/dL (0.0-1.4); BUN 13 mg/dL (7-17); BUN/CREATININE RATIO 25 (12-20 (CALC)); CARBON DIOXIDE 20 mmol/l (22-30); CHLORIDE 105 mmol/l (95-108); CREATININE 0.5 mg/dL (0.5-1.0); GFR > 60 ML/MIN (>=60 (CALC)); GFR FOR AFR.AMER. > 60 ML/MIN (>=60 (CALC)); POTASSIUM 3.8 mmol/l (3.5-5.1); SGOT/AST 19 u/l (14-36); SODIUM 137 mmol/l (137-146)
[2020-10-18 11:52] LABS: BETA-HCG, QUANT(RESULT NUMBER) 298 mIU/mL
[2020-10-18] MEDS ORDERED: KEFLEX500 MG PO (12:07)
[2020-10-18 12:35] VITALS: BP 125/70
== END 2020-10-18 12:42 | disposition home or self-care (01) | DRG 833 ==
LOC: ED 10:34
PROVIDERS: Emergency Medicine
DX: O20.0 Threatened abortion (principal); O23.40 Unspecified infection of urinary tract in pregnancy, unspecified trimester; Z3A.00 Weeks of gestation of pregnancy not specified

== ENCOUNTER 2020-11-24 12:45 | Observation (INO) | payer BC ==
[~2020-11-24] VITALS: Ht 162.6 cm; Wt 144.0 kg
[~2020-11-24 12:45] MED LIST changes: +KEFLEX500 MG PO
[2020-11-24 14:32] LABS: HEMATOCRIT 33.2 % (37.0-47.0); HEMOGLOBIN 9.7 g/dl (12.0-16.0); IMMATURE GRANULOCYTES 0.3 % (0.0-5.0); MEAN CELL VOLUME 65.1 fL CALC (80.0-100.0); MEAN CORPUSCULAR HGB CONC 29.2 g/dL CAL (32.0-36.0); NEUT# 10.55 thou/uL (2.00-7.15); RED BLOOD COUNT 5.1 mill/uL (4.20-5.60)
[2020-11-24 14:37] LABS: ALBUMIN 4.3 g/dL (3.2-5.0); ALKALINE PHOSPHATASE 96 u/l (38-126); BILIRUBIN, TOTAL 0.3 mg/dL (0.0-1.4); BUN 17 mg/dL (7-17); BUN/CREATININE RATIO 32 (12-20 (CALC)); CHLORIDE 104 mmol/l (95-108); CREATININE 0.5 mg/dL (0.5-1.0); GFR > 60 ML/MIN (>=60 (CALC)); GFR FOR AFR.AMER. > 60 ML/MIN (>=60 (CALC)); POTASSIUM 3.9 mmol/l (3.5-5.1); SODIUM 138 mmol/l (137-146); TOTAL PROTEIN 7.8 g/dL (6.3-8.2)
[2020-11-24 14:39] LABS: ANION GAP 12 (6-22 (CALC)); CARBON DIOXIDE 26 mmol/l (22-30); SGOT/AST 40 u/l (14-36)
[2020-11-24 18:23] VITALS: BP 91/61
[2020-11-25 04:00] VITALS: BP 104/65
[2020-11-25 06:30] LABS: HEMATOCRIT 30.2 % (37.0-47.0); HEMOGLOBIN 8.8 g/dl (12.0-16.0); MEAN CELL VOLUME 65.2 fL CALC (80.0-100.0); MEAN CORPUSCULAR HGB CONC 29.1 g/dL CAL (32.0-36.0); RED BLOOD COUNT 4.63 mill/uL (4.20-5.60)
[2020-11-25 06:40] LABS: ANION GAP 10 (6-22 (CALC)); BUN 12 mg/dL (7-17); BUN/CREATININE RATIO 27 (12-20 (CALC)); CARBON DIOXIDE 24 mmol/l (22-30); CHLORIDE 104 mmol/l (95-108); CREATININE 0.5 mg/dL (0.5-1.0); GFR > 60 ML/MIN (>=60 (CALC)); GFR FOR AFR.AMER. > 60 ML/MIN (>=60 (CALC)); MAGNESIUM 1.8 mg/dL (1.6-2.3); POTASSIUM 3.9 mmol/l (3.5-5.1); SODIUM 135 mmol/l (137-146)
[2020-11-25 07:58] VITALS: BP 110/74
[2020-11-25] MEDS ORDERED: HYDROCO/APAP1 TA9 PO (13:17)
[2020-11-25 14:58] VITALS: BP 110/74
[2020-11-25 19:00] VITALS: BP 90/61
[2020-11-26] VITALS (7 sets, daily range): BP systolic 88–116; BP diastolic 62–75
[2020-11-26] MEDS ORDERED: PERCOCET 5/325M1 TAB PO (09:33)
== END 2020-11-26 12:53 | disposition home or self-care (01) | DRG 419 ==
LOC: ED 12:45 → ED-I 15:04 → ED 15:44 → MS2 15:45
PROVIDERS: Family Medicine; Nurse Practitioner; ADMIT Internal Medicine; ATTEND Internal Medicine
PROC: 0FT44ZZ Resection of Gallbladder, Percutaneous Endoscopic Approach (ICD-10-PCS; principal; 2020-11-26)
DX: K80.12 Calculus of gallbladder with acute and chronic cholecystitis without obstruction (principal); Z98.84 Bariatric surgery status; Z87.442 Personal history of urinary calculi; Z20.822 Contact with and (suspected) exposure to COVID-19
CPT/HCPCS: G0378; J0131; J1610; J2710; Q9967

== ENCOUNTER 2021-06-28 17:01 | Emergency (ER) | payer BC ==
[~2021-06-28] VITALS: Ht 162.6 cm; Wt 139.0 kg
[~2021-06-28 17:01] MED LIST changes: +HYDROCO/APAP1 TA9 PO; +PERCOCET 5/325M1 TAB PO
[2021-06-28 19:17] VITALS: BP 109/66
[2021-06-28] MEDS ORDERED: ALLEGRA-D 2424 HOUR PO (19:28)
[2021-06-28 19:30] VITALS: BP 107/74
[2021-06-28 19:46] VITALS: BP 104/75
[2021-06-28 20:01] VITALS: BP 106/77
== END 2021-06-28 20:05 | disposition home or self-care (01) | DRG 156 ==
LOC: ED 17:01
DX: H69.91 Unspecified Eustachian tube disorder, right ear (principal)

== ENCOUNTER 2021-09-01 11:42 | Emergency (ER) | payer BC ==
[~2021-09-01] VITALS: Ht 162.6 cm; Wt 145.0 kg
[~2021-09-01 11:42] MED LIST changes: +ALLEGRA-D 2424 HOUR PO
[2021-09-01 11:53] VITALS: BP 110/74
[2021-09-01 12:01] VITALS: BP 81/65
[2021-09-01 12:08] VITALS: BP 105/62
[2021-09-01 12:15] VITALS: BP 93/56
[2021-09-01 12:31] VITALS: BP 85/63
[2021-09-01] MEDS ORDERED: VIBRAMYCIN100 M2 PO (12:35)
[2021-09-01] MEDS ORDERED: TRAMADOL HCL50 MG PO (12:36)
[2021-09-01 12:40] VITALS: BP 85/63
== END 2021-09-01 12:50 | disposition home or self-care (01) | DRG 603 ==
LOC: ED 11:42
DX: L03.311 Cellulitis of abdominal wall (principal)

== ENCOUNTER 2022-04-24 08:55 | Emergency (ER) | payer BC ==
[~2022-04-24] VITALS: Ht 162.6 cm; Wt 134.0 kg
[~2022-04-24 08:55] MED LIST changes: +TRAMADOL HCL50 MG PO; +VIBRAMYCIN100 M2 PO
[2022-04-24 09:59] LABS: URINE BILIRUBIN - DIPSTICK NEGATIVE (NEGATIVE); URINE BLOOD DIPSTICK TRACE-INTACT (NEGATIVE); URINE COLOR YELLOW; URINE GLUCOSE - DIPSTICK NEGATIVE (NEGATIVE); URINE KETONE NEGATIVE (NEGATIVE); URINE LEUK ESTERASE SMALL (NEGATIVE); URINE NITRITE - DIPSTICK NEGATIVE (Negative); URINE PH 7.5 (4.5-8.0); URINE PROTEIN - DIPSTICK NEGATIVE (NEG-TRACE); URINE SPECIFIC GRAVITY 1.015; URINE UROBILINOGEN - DIPSTICK 0.2 E.U./dL (0.2)
[2022-04-24 10:00] LABS: URINE BACTERIA FEW hpf; URINE RBC 0-2 RBC/hpf (0-5)
[2022-04-24] MEDS ORDERED: NITROFURANTN100 M2 PO ×2 (10:01→10:54)
[2022-04-24] MEDS ORDERED: ZOFRAN4 MG/TAB PO ×2 (10:01→10:54)
[2022-04-24 10:13] VITALS: BP 106/70
[2022-04-26] MEDS ORDERED: NITROFURANTN100 M2 PO (14:36)
[2022-04-26] MEDS ORDERED: ZOFRAN4 MG/TAB PO (14:36)
[2022-04-26] MEDS ORDERED: OMNI-PAC300 MG PO (15:09)
== END 2022-04-24 10:17 | disposition home or self-care (01) | DRG 832 ==
LOC: ED 08:55
PROVIDERS: Family Medicine
DX: O23.41 Unspecified infection of urinary tract in pregnancy, first trimester (principal); N39.0 Urinary tract infection, site not specified; Z3A.08 8 weeks gestation of pregnancy

== ENCOUNTER 2022-05-01 09:51 | Emergency (ER) | payer BC ==
[2022-05-01] VITALS (8 sets, daily range): BP systolic 91–106; BP diastolic 57–67
[~2022-05-01] VITALS: Ht 162.6 cm; Wt 134.7 kg
[~2022-05-01 09:51] MED LIST changes: +NITROFURANTN100 M2 PO; +OMNI-PAC300 MG PO
[2022-05-01 11:09] LABS: URINE BILIRUBIN - DIPSTICK NEGATIVE (NEGATIVE); URINE BLOOD DIPSTICK NEGATIVE (NEGATIVE); URINE CLARITY CLEAR; URINE COLOR YELLOW; URINE GLUCOSE - DIPSTICK NEGATIVE (NEGATIVE); URINE KETONE TRACE mg/dL (NEGATIVE); URINE LEUK ESTERASE SMALL (Negative); URINE NITRITE - DIPSTICK NEGATIVE (Negative); URINE PROTEIN - DIPSTICK TRACE mg/dL (NEG-TRACE); URINE SPECIFIC GRAVITY >=1.030; URINE UROBILINOGEN - DIPSTICK 0.2 E.U./dL (0.2)
[2022-05-01 11:10] LABS: URINE RBC 0-2 RBC/hpf (0-5); URINE SQUAMOUS EPITHELIAL CELL MANY EPI/hpf (0-FEW)
[2022-05-01] MEDS ORDERED: DIFLUCAN100 M1 PO (11:31)
== END 2022-05-01 11:45 | disposition home or self-care (01) | DRG 833 ==
LOC: ED 09:51
PROVIDERS: Emergency Medicine
DX: O26.891 Other specified pregnancy related conditions, first trimester (principal); L29.2 Pruritus vulvae; Z3A.01 Less than 8 weeks gestation of pregnancy

== ENCOUNTER 2022-06-04 07:49 | Emergency (ER) | payer BC ==
[~2022-06-04] VITALS: Ht 162.6 cm; Wt 135.0 kg
[2022-06-04 09:54] LABS: URINE BILIRUBIN - DIPSTICK NEGATIVE (NEGATIVE); URINE BLOOD DIPSTICK NEGATIVE (NEGATIVE); URINE COLOR YELLOW; URINE GLUCOSE - DIPSTICK NEGATIVE (NEGATIVE); URINE KETONE 15 mg/dL (NEGATIVE); URINE PROTEIN - DIPSTICK NEGATIVE (NEG-TRACE); URINE SPECIFIC GRAVITY 1.015; URINE UROBILINOGEN - DIPSTICK 0.2 E.U./dL (0.2)
[2022-06-04 10:01] LABS: URINE LEUK ESTERASE TRACE (NEGATIVE); URINE NITRITE - DIPSTICK NEGATIVE (Negative)
[2022-06-04 10:04] LABS: BASO% 0.5 % (0-3); HEMATOCRIT 31.5 % (37.0-47.0); HEMOGLOBIN 9.1 g/dl (12.0-16.0); IMMATURE GRANULOCYTES 0.1 % (0.0-5.0); LYMPH% 22.8 % (15-41); MEAN CORPUSCULAR HGB 17.6 pG CALC (26.0-32.0); MEAN CORPUSCULAR HGB CONC 28.9 g/dL CAL (32.0-36.0); MONO% 5.5 % (2-13); NEUT# 6.15 thou/uL (2.00-7.15); NEUT% 70.1 % (42-76); RED BLOOD COUNT 5.17 mill/uL (4.20-5.60); RED CELL DISTRI WIDTH 22.1 % (11.5-15.5)
[2022-06-04 10:11] LABS: MEAN CELL VOLUME 60.9 fL CALC (80.0-100.0)
[2022-06-04 10:27] LABS: ALBUMIN 3.6 g/dL (3.2-5.0); ALKALINE PHOSPHATASE 56 u/l (38-126); ANION GAP 10 (6-22 (CALC)); BUN 8 mg/dL (7-17); BUN/CREATININE RATIO 17 (12-20 (CALC)); CARBON DIOXIDE 21 mmol/l (22-30); CHLORIDE 108 mmol/l (95-108); CREATININE 0.5 mg/dL (0.5-1.0); GFR FOR AFR.AMER. > 60 ML/MIN (>=60 (CALC)); GFR OTHER RACES > 60 ML/MIN (>=60 (CALC)); POTASSIUM 4.1 mmol/l (3.5-5.1); SGOT/AST 17 u/l (14-36); SODIUM 135 mmol/l (137-146); TOTAL PROTEIN 6.7 g/dL (6.3-8.2)
[2022-06-04 11:16] LABS: BETA-HCG, QUANT(RESULT NUMBER) 23139 mIU/mL
[2022-06-04] MEDS ORDERED: KEFLEX500 MG PO (11:53)
[2022-06-04 12:39] VITALS: BP 116/78
== END 2022-06-04 12:49 | disposition home or self-care (01) | DRG 833 ==
LOC: ED 07:49
PROVIDERS: Emergency Medicine
DX: O26.892 Other specified pregnancy related conditions, second trimester (principal); R30.0 Dysuria; R10.2 Pelvic and perineal pain; Z3A.14 14 weeks gestation of pregnancy

== ENCOUNTER 2022-12-18 10:45 | Emergency (ER) | payer BC ==
[~2022-12-18] VITALS: Ht 162.6 cm; Wt 134.5 kg
[2022-12-18 11:10] VITALS: BP 117/82
[2022-12-18 12:14] LABS: URINE BACTERIA FEW hpf; URINE BLOOD DIPSTICK Negative (NEGATIVE); URINE COLOR Yellow; URINE EPITHELIAL CELLS FEW EPI/hpf (0-FEW); URINE GLUCOSE - DIPSTICK Negative (NEGATIVE); URINE KETONE Negative (NEGATIVE); URINE LEUK ESTERASE Moderate (NEGATIVE); URINE NITRITE - DIPSTICK Negative (Negative); URINE PROTEIN - DIPSTICK Negative (NEG-TRACE); URINE SPECIFIC GRAVITY >=1.030; URINE UROBILINOGEN - DIPSTICK 0.2 E.U./dL (0.2)
[2022-12-18] MEDS ORDERED: METRONIDAZOLE500 MG PO (12:27)
[2022-12-18] MEDS ORDERED: NITROFURANTN100 M2 PO (12:27)
[2022-12-18 12:38] VITALS: BP 118/72
[2022-12-18] MEDS ORDERED: DIFLUCAN150 MG PO (12:38)
== END 2022-12-18 12:47 | disposition home or self-care (01) | DRG 690 ==
LOC: ED 10:45
PROVIDERS: Family Medicine
DX: N39.0 Urinary tract infection, site not specified (principal); N76.0 Acute vaginitis; Z98.84 Bariatric surgery status; Z87.442 Personal history of urinary calculi

== ENCOUNTER 2023-05-24 16:45 | Emergency (ER) | payer BC ==
[~2023-05-24] VITALS: Ht 162.6 cm; Wt 140.0 kg
[~2023-05-24 16:45] MED LIST changes: +AMOX/K CLAV875 M1 PO; +DIFLUCAN150 MG PO; +METRONIDAZOLE500 MG PO
[2023-05-24 18:48] VITALS: BP 113/73
== END 2023-05-24 18:52 | disposition home or self-care (01) | DRG 153 ==
LOC: ED 16:45
DX: J06.9 Acute upper respiratory infection, unspecified (principal); Z20.822 Contact with and (suspected) exposure to COVID-19

== ENCOUNTER 2023-05-31 15:50 | Emergency (ER) | payer BC ==
[~2023-05-31] VITALS: Ht 162.6 cm; Wt 136.6 kg
[2023-05-31 16:27] VITALS: BP 116/71
[2023-05-31 16:31] VITALS: BP 117/68
[2023-05-31] MEDS ORDERED: BACTRIM DS1 TAB PO (16:40)
[2023-05-31] MEDS ORDERED: CEPHALEXIN500 M1 PO (16:40)
[2023-05-31 16:52] VITALS: BP 117/68
== END 2023-05-31 17:00 | disposition home or self-care (01) | DRG 603 ==
LOC: ED 15:50
DX: L03.314 Cellulitis of groin (principal); E66.9 Obesity, unspecified; Z87.442 Personal history of urinary calculi; Z98.84 Bariatric surgery status

== ENCOUNTER 2023-12-14 13:49 | Emergency (ER) | payer BC ==
[~2023-12-14] VITALS: Ht 162.6 cm; Wt 113.0 kg
[~2023-12-14 13:49] MED LIST changes: +BACTRIM DS1 TAB PO; +CEPHALEXIN500 M1 PO
[2023-12-14 14:04] VITALS: BP 110/70
[2023-12-14 14:07] LABS: URINE BLOOD DIPSTICK Negative (NEGATIVE); URINE GLUCOSE - DIPSTICK Negative (NEGATIVE); URINE KETONE Trace mg/dL (NEGATIVE); URINE LEUK ESTERASE Negative (NEGATIVE); URINE NITRITE - DIPSTICK Negative (Negative); URINE PH 5.5 (4.5-8.0); URINE PROTEIN - DIPSTICK Negative (NEG-TRACE); URINE SPECIFIC GRAVITY >=1.030; URINE UROBILINOGEN - DIPSTICK 0.2 E.U./dL (0.2)
[2023-12-14 14:14] LABS: URINE COLOR Yellow
[2023-12-14 14:15] VITALS: BP 100/68
[2023-12-14 14:31] VITALS: BP 98/70
[2023-12-14 14:45] VITALS: BP 106/68
[2023-12-14] MEDS ORDERED: METRONIDAZOLE500 MG PO (14:48)
[2023-12-14 15:01] VITALS: BP 112/73
[2023-12-14 15:03] VITALS: BP 112/73
[2023-12-15] MEDS ORDERED: NABUMETONE750 MG PO (22:37)
[2023-12-15] MEDS ORDERED: MEDDOSEPAK PO (22:37)
[2023-12-15] MEDS ORDERED: CYCLOBENZAPRINE10 MG PO (22:37)
== END 2023-12-14 15:06 | disposition home or self-care (01) | DRG 761 ==
LOC: ED 13:49
PROVIDERS: Nurse Practitioner
DX: N89.8 Other specified noninflammatory disorders of vagina (principal); Z87.442 Personal history of urinary calculi

== ENCOUNTER 2023-12-15 20:26 | Emergency (ER) | payer BC ==
[~2023-12-15] VITALS: Ht 162.6 cm; Wt 127.0 kg
[2023-12-15] MEDS ORDERED: KETOROLAC TROMETHAMINE 30 MG/ML SDV IM ONE (22:35)
[2023-12-15] MEDS ORDERED: traMADol HCL 50 MG/TAB PO ONE (22:35)
[2023-12-15] MEDS ORDERED: DEXAMETHASONE SOD. PHOSPHATE 10 MG/ML VIAL IM ONE (22:35)
[2023-12-15] MEDS ORDERED: diazePAM 10 MG/2 ML VIAL IM ONE (22:35)
[2023-12-15] MEDS ORDERED: MEDDOSEPAK PO (22:37)
[2023-12-15] MEDS ORDERED: NABUMETONE750 MG PO (22:37)
[2023-12-15] MEDS ORDERED: CYCLOBENZAPRINE10 MG PO (22:37)
[2023-12-15 23:27] VITALS: BP 118/86
== END 2023-12-15 23:28 | disposition home or self-care (01) | DRG 552 ==
LOC: ED 20:26
DX: M54.41 Lumbago with sciatica, right side (principal); Z87.442 Personal history of urinary calculi

== ENCOUNTER 2024-05-03 16:56 | Emergency (ER) | payer BC ==
[~2024-05-03] VITALS: Ht 162.6 cm; Wt 127.0 kg
[2024-05-03] VITALS (7 sets, daily range): BP systolic 109–129; BP diastolic 74–82
[~2024-05-03 16:56] MED LIST changes: +CYCLOBENZAPRINE10 MG PO; +MEDDOSEPAK PO; +NABUMETONE750 MG PO
== END 2024-05-03 19:15 | disposition home or self-care (01) | DRG 153 ==
LOC: ED 16:56
DX: J06.9 Acute upper respiratory infection, unspecified (principal); Z20.822 Contact with and (suspected) exposure to COVID-19